=== PATIENT | male | born 1995 | race Caucasian/White ===

== ENCOUNTER 2023-01-16 07:48 | Day surgery (SDC) | payer BC ==
[~2023-01-16 07:48] MED LIST: Lactated Ringers 1,000 ML IV SCH; propofoL 50 ML ONE
[2023-01-16] MEDS ORDERED: Propofol 200 MG/20 ML SDV ONE (09:29)
[2023-01-16] MEDS ORDERED: Lactated Ringers 1,000 ML IV SCH (10:00)
[2023-01-16 10:25] VITALS: BP 128/70; PULSE 54
== END 2023-01-16 10:25 | disposition home or self-care (01) ==
LOC: MW.SDS 07:48
PROVIDERS: ATTEND Surgery
DX: K62.5 Hemorrhage of anus and rectum (principal); F17.210 Nicotine dependence, cigarettes, uncomplicated; Z80.0 Family history of malignant neoplasm of digestive organs; Z98.890 Other specified postprocedural states
CPT/HCPCS: 45378; J2704; J7120; 00811